=== PATIENT | female | born 1950 | race Caucasian/White ===

== ENCOUNTER 2023-07-31 11:53 | Outpatient (AMB) | payer OTHER, SELFPAY ==
[2023-07-31 13:22] VITALS: BP 102/64; PULSE 77; TEMP 36.8; O2SAT 97; BMI 25.2
--- NOTE | 2023-07-31 13:22 | MHC.OFFWIV ---
Intake Vital Signs 07/31/23 13:22 Height 5 ft 8 in Weight 166 lb BMI 25.2 BP 102/64 Blood Pressure Location Lt brachial Position Sitting Pulse 77 Pulse Source Pulse Oximeter Temp 98.2 F Temp Source Oral Pulse Oximetry (%) 97 Oxygen Delivery Method Room Air Intake Visit Reasons: [employer], cough, congestion (masked) Intake Note: Pt is here today c/o cough and chest congestion x1week Patient Tobacco Use Status: Never used Tobacco Allergies No Known Allergies Allergy (Verified 07/31/23 13:23) HPI HPI Comments History of Present Illness Details 73-year-old female presents for cough congestion x2 weeks. Sons sick with similar symptoms. PFSH Social History Patient Tobacco Use Status: Never used Tobacco Review of Systems Resp Reports chest congestion and Reports cough Physical Exam Vital Signs: Last Vital Signs Temp 98.2 F 07/31/23 13:22 Pulse 77 07/31/23 13:22 BP 102/64 07/31/23 13:22 Pulse Ox 97 07/31/23 13:22 Oxygen Delivery Method Room Air 07/31/23 13:22 BMI result Body Mass Index 25.2 Const General: cooperative, no acute distress and alert Orientation/consciousness: patient oriented x3 Limitations: no limitations HEENT Head: Yes normal to inspection Ears: hearing grossly normal bilaterally and external ears normal General nose exam: Normal external nose present Eyes General: appearance normal, both eyes and all related structures Neck Neck: Yes normal visual inspection Chest Chest palpation & inspection: normal inspection of the chest Resp Effort & Inspection: normal respiratory effort, able to speak in complete sentences and no audible wheezes Auscultation: clear to auscultation bilaterally Cardio Rate: regular rate Rhythm: regular rhythm GI Inspection: Yes normal to inspection Palpation (GI): Soft to palpation and nontender Skin General skin exam: no rashes or lesions noted Neuro General: patient oriented x3 Psych Appearance: grossly normal Mental Status: mental status grossly normal Speech and movement: Normal speech and movement present Affect: normal affect Attitude: cooperative Thought process: Normal thought process present Thought content: Normal thought content present Assessment & Plan Assessment & Plan (1) Upper respiratory infection: Code(s): J06.9 - Acute upper respiratory infection, unspecified Qualifiers: URI type: unspecified URI Qualified Code(s): J06.9 - Acute upper respiratory infection, unspecified Plan: Suspect upper respiratory infection given age is well as prolonged course in comorbidities will prescribe azithromycin. Discharge instructions, follow up and treatment are discussed with patient in my usual fashion. Alternatives in treatment are also discussed. The patient will return for worsening symptoms or as needed. Advised that any labs/imaging ordered will be followed up on and contact made if further treatment needed. Counseled that patient's condition may require further evaluation and/or treatment. Symptoms of concern for worsening disorder discussed in detail in my customary manner. Patient does verbalize understanding of the plan, there are no apparent barriers to communication. The patient is given the opportunity to ask questions and have them answered to his/her satisfaction Medications: New azithromycin For 250 mg dose pack: take 500 mg today (day 1), then 250 mg for 4 days (days 2-5) PO 6 tabs 0RF benzonatate 100 mg PO BID PRN 10 caps 0RF cough Coding Level of Care Code New Pt Level 3 (12952) Diagnoses Upper respiratory tract infection, unspecified type J06.9 URI type: unspecified URI
== END 2023-07-31 13:46 | disposition home or self-care (01) ==
PROVIDERS: Visit Provider Physician Assistant
DX: J06.9 Acute upper respiratory infection, unspecified (principal)
CPT/HCPCS: 99203

== ENCOUNTER 2024-07-17 08:04 | Day surgery (SDC) | payer MEDICARE, SELFPAY ==
[2024-07-12 15:50] VITALS: BMI 28.3
[2024-07-12 16:24] VITALS: BMI 28.2
--- NOTE | 2024-07-13 13:04 | HO.ANESPROP2 ---
Documented by User: Vickie Solano NP 07/13/24 13:05 HPI - Anesthesia Eval Consult details Narrative: 74yo F for Right Cataract Extraction IOL Insertion No previous cataract on record Anesthesia Pre-Procedure Meds Is the patient on any of the following meds?: GLP1/DPP4 PMFSH Active Problems Active Problems: All Active Problems Upper respiratory infection (Acute) Past Medical History Medical History Wears dentures Hx of therapeutic radiation Pulmonary nodule Abdominal aortic atherosclerosis Atherosclerotic heart disease of [place] coronary artery without angina pectoris Diabetes mellitus with hyperglycemia Chronic CHF Hypertensive heart disease with CHF Duodenal diverticulum Urinary incontinence History of breast cancer Cervical spinal stenosis Deviated nasal septum Bilateral adrenal adenomas Iron deficiency anemia Cataracts, bilateral Anemia 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 Cerebrovascular disease Hyperlipidemia GERD (gastroesophageal reflux disease) 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 Surgical History Surgical History History of surgery on lower extremity Hx of lumpectomy History of total right knee replacement (TKR) History of right hip replacement (~08/2023) S/P AAA repair (~2018) Hx of cholecystectomy Social History Social History Household Members Other:: son Kang Are you a primary manager home healthcare to a significant other at home: No Do you presently have visiting nurse or other home services: Yes (son caregiver) Patient Tobacco Use Status: Never used Tobacco Use of substances other than those prescribed or required for medical reasons: No Are you DNR?: No Advance Directives: Yes Advance Directives Information Provided: No Advance Directives on File: Yes Advance Directives Date on File: 11/08/23 Recently lost weight without trying: No Nutrition Risks: Surgical patient >75years Meds Allergies Allergy/AdvReac Type Severity Reaction Status Date / Time No Known Allergies Allergy Verified 07/17/24 08:49 Home Medications ?Medication ?Instructions ?Recorded ?Confirmed ?Last Taken ?Type amlodipine 5 mg tablet 5 mg PO DAILY 07/31/23 07/17/24 07/17/24 History aspirin 81 mg tablet,delayed 81 mg PO DAILY 07/31/23 07/17/24 Unknown History release atorvastatin 40 mg tablet 40 mg PO BEDTIME 07/31/23 07/17/24 Unknown History furosemide 20 mg tablet 20 mg PO DAILY 07/31/23 07/17/24 Unknown History lisinopril 40 mg tablet 40 mg PO DAILY 07/31/23 07/17/24 Unknown History metformin 1,000 mg tablet 1,000 mg PO BID 07/31/23 07/17/24 07/16/24 History metoprolol tartrate 50 mg tablet 50 mg PO BID 07/31/23 07/17/24 07/17/24 History alogliptin 25 mg tablet 25 mg PO DAILY 07/12/24 07/17/24 07/14/24 History docusate sodium 100 mg capsule 100 mg PO DAILY 07/12/24 07/17/24 Unknown History ferrous sulfate 325 mg (65 mg 325 mg PO Q OTHER DAY 07/12/24 07/17/24 Unknown History iron) tablet memantine 5 mg tablet 5 mg PO BID 07/12/24 07/17/24 Unknown History mirtazapine 15 mg tablet 15 mg PO BEDTIME 07/12/24 07/17/24 Unknown History Exam Height,Weight and Vital Signs: Height 5 ft 6 in Weight 79.379 kg Assessment and Plan Assessment Anesthesia Assessment: Chart Reviewed Documented by User: Merna Sharif MD 07/17/24 09:08 COUNTS INCLUDE 234 BEDS AT [facility] Past Medical History Medical History Wears dentures Hx of therapeutic radiation Pulmonary nodule Abdominal aortic atherosclerosis Atherosclerotic heart disease of [place] coronary artery without angina pectoris Diabetes mellitus with hyperglycemia Chronic CHF Hypertensive heart disease with CHF Duodenal diverticulum Urinary incontinence History of breast cancer Cervical spinal stenosis Deviated nasal septum Bilateral adrenal adenomas Iron deficiency anemia Cataracts, bilateral Anemia Adrenal Tien's syndrome Cerebrovascular disease Hyperlipidemia GERD (gastroesophageal reflux disease) 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 Family History Family history of problems with anesthesia: No Surgical History Surgical History History of surgery on lower extremity Hx of lumpectomy History of total right knee replacement (TKR) History of right hip replacement (~08/2023) S/P AAA repair (~2018) Hx of cholecystectomy History of Problems with Anesthesia: No Social History Social History Household Members Other:: son Kang Are you a primary manager home healthcare to a significant other at home: No Do you presently have visiting nurse or other home services: Yes (son caregiver) Patient Tobacco Use Status: Never used Tobacco Use of substances other than those prescribed or required for medical reasons: No Are you DNR?: No Advance Directives: Yes Advance Directives Information Provided: No Advance Directives on File: Yes Advance Directives Date on File: 11/08/23 Recently lost weight without trying: No Nutrition Risks: Surgical patient >75years Meds Allergies Allergy/AdvReac Type Severity Reaction Status Date / Time No Known Allergies Allergy Verified 07/17/24 08:49 Home Medications ?Medication ?Instructions ?Recorded ?Confirmed ?Last Taken ?Type amlodipine 5 mg tablet 5 mg PO DAILY 07/31/23 07/17/24 07/17/24 History aspirin 81 mg tablet,delayed 81 mg PO DAILY 07/31/23 07/17/24 Unknown History release atorvastatin 40 mg tablet 40 mg PO BEDTIME 07/31/23 07/17/24 Unknown History furosemide 20 mg tablet 20 mg PO DAILY 07/31/23 07/17/24 Unknown History lisinopril 40 mg tablet 40 mg PO DAILY 07/31/23 07/17/24 Unknown History metformin 1,000 mg tablet 1,000 mg PO BID 07/31/23 07/17/24 07/16/24 History metoprolol tartrate 50 mg tablet 50 mg PO BID 07/31/23 07/17/24 07/17/24 History alogliptin 25 mg tablet 25 mg PO DAILY 07/12/24 07/17/24 07/14/24 History docusate sodium 100 mg capsule 100 mg PO DAILY 07/12/24 07/17/24 Unknown History ferrous sulfate 325 mg (65 mg 325 mg PO Q OTHER DAY 07/12/24 07/17/24 Unknown History iron) tablet memantine 5 mg tablet 5 mg PO BID 07/12/24 07/17/24 Unknown History mirtazapine 15 mg tablet 15 mg PO BEDTIME 07/12/24 07/17/24 Unknown History Exam Airway Mallampati Class: II TM Dist: >3cm Neck ROM: Limited Heart: rrr Lungs: cta Assessment and Plan Assessment Anesthesia Assessment: Anesthesia Plan Discussed Final Anesthetic Review Family History of Problems with Anesthesia: No History of Problems with Anesthesia: No NPO: Yes ASA Class: III Final Preanesthetic Review: No Changes in Pt Med Stat, Meds/Allgs Chart Reviewed, Consent Obtained/Reviewed and Anes Risks/Benef Reviewed Patient Risk: Intermediate Procedure Risk: Low Anesthetic Plan Anesthetic Plan: MAC: Disposition: Standard PACU
[2024-07-17 08:39] VITALS: BP 176/60; PULSE 80; RESP 16; TEMP 37.2; O2SAT 96
[2024-07-17 08:50] LABS: Glucose, Whole Blood 140 mg/dL (60-115)
[2024-07-17 09:00] VITALS: BMI 28.0
[2024-07-17] MEDS: Lactated Ringers 500 ML 50 ML IV (09:00)
[2024-07-17] MEDS: Tetracaine HCl/PF 0.5% Oph Sol 4 ML DROPS 1 DROP EYE-RIGHT (09:03)
[2024-07-17] MEDS: Cyclopentolate 1 % Ophth Sol 2 ML DRPBTL 1 DROP EYE-RIGHT ×3 (09:04→09:20)
[2024-07-17] MEDS: Tropicamide 1 % Ophth Sol 3 ML BTL 1 DROP EYE-RIGHT ×3 (09:06→09:22)
[2024-07-17] MEDS: Ketorolac Tromethamine 0.5% Op 10 ML DROPS 1 DROP EYE-RIGHT ×3 (09:08→09:24)
[2024-07-17] MEDS: Phenylephrine HCL 2.5% Oph SoL 2 ML BOTTLE 1 DROP EYE-RIGHT ×3 (09:10→09:26)
--- NOTE | 2024-07-17 09:47 | P.PCNO_ITS ---
Ophthalmology Procedure Procedure Date of Service: 07/17/24 Ophthalmology Viscoelastic: Healon Duet Dual Pack Pro Ophthalmology Lenses: IOL Acrysof MP - MA60AC (21) Procedure Notes: PREOPERATIVE DIAGNOSIS: Decreased visual acuity right eye secondary to cataract POSTOPERATIVE DIAGNOSIS: Same PROCEDURE: Right cataract extraction with intraocular lens insertion SURGEON: Patel Andujar M.D. ANESTHESIA: Topical/MAC ESTIMATED BLOOD LOSS: None COMPLICATIONS: None After obtaining informed consent, the patient was brought to the operating room suite and placed in the supine position. After adequate sedation per anesthesia, topical drops of Tetracaine were given to the right eye. The eye was then prepped and draped in the usual sterile fashion. The operating room microscope was then positioned over the operative eye and a lid speculum placed. A paracentesis was created. Viscoelastic was then instilled into the anterior chamber. A three plane incision was then created temporally, utilizing a 2.85 mm keratome. Capsulotomy forceps were then utilized to create a circular tear capsulotomy. Hydrodissection and hydrodelineation were carried out until adequate mobilization of the nucleus occurred. Phacoemulsification was then utilized to remove the dense central nucl eus followed by removal of the cortical material utilizing the automated aspiration irrigation unit. Viscoelastic was instilled into the posterior capsular bag followed by placement of a posterior chamber intraocular lens without difficulty. The residual Viscoelastic was then removed utilizing the automated IA machine. The wound was checked and found to be watertight. The patient tolerated the procedure well and the lid speculum was removed. Intracameral injection of Vigamox 0.1 mL followed by a subtenon injection of Kenalog-40 0.2 mL were administered. The patient will be seen in the a.m.
--- NOTE | 2024-07-17 09:47 | MHC.SHP ---
Pre-Procedural Eval Section A - 24 Hr Update-Section A only Date of Service: 07/17/24 The patient is an INPATIENT: No Changes since office visit: No Cold of Flu in the past 2 weeks, No New Medical Problems, No Changes in Medication and No Patient answered all questions The patient has been examined within 24 hours of the surgical procedure. The History & Physical has been completed within 30 days and I have reviewed it.: Yes Section B - Complete if H&P > 30 days Chief Complaint: Age-related nuclear cataract, right eye Allergies: Allergies Allergy/AdvReac Type Severity Reaction Status Date / Time No Known Allergies Allergy Verified 07/17/24 08:49 Plan Diagnosis/Plan: Unchanged I have reviewed the history and physical and performed a pertinent physical examination on my patient. No changes have occurred unless specified. Time Spent With Patient Time: Total time managing care of this patient today ____ minutes.
[2024-07-17 10:18] VITALS: BP 118/59; PULSE 70; RESP 16; TEMP 36.2; O2SAT 98
[2024-07-17 10:33] VITALS: BP 119/65; PULSE 72; RESP 18; TEMP 36.2; O2SAT 95
== END 2024-07-17 10:38 | disposition home or self-care (01) ==
PROVIDERS: Visit Provider Ophthalmology
PROC: (CPT 66985; principal; 2024-07-17 10:00)
DX: H25.11 Age-related nuclear cataract, right eye (principal); H52.4 Presbyopia; H40.013 Open angle with borderline findings, low risk, bilateral; H18.413 Arcus senilis, bilateral; H11.153 Pinguecula, bilateral; I10 Essential (primary) hypertension; E11.9 Type 2 diabetes mellitus without complications; E78.00 Pure hypercholesterolemia, unspecified; G30.9 Alzheimer's disease, unspecified; F02.80 Dementia in other diseases classified elsewhere, unspecified severity, without behavioral disturbance, psychotic disturbance, mood disturbance, and anxiety; Z79.82 Long term (current) use of aspirin; Z79.84 Long term (current) use of oral hypoglycemic drugs; Z79.899 Other long term (current) drug therapy; Z87.891 Personal history of nicotine dependence
CPT/HCPCS: 66984; 82947; J2250; J3301; V2630

== ENCOUNTER 2024-07-31 07:46 | Day surgery (SDC) | payer MEDICARE, SELFPAY ==
[2024-07-12 16:38] VITALS: BMI 28.2
--- NOTE | 2024-07-28 09:05 | P.CONAN_ITS ---
Documented by User: Vickie Solano NP 07/28/24 09:06 HPI - Anesthesia Eval Consult details Narrative: 74yo F for Left Cataract Extraction IOL Insertion Right eye 07/17: [facility] 1 Anesthesia Pre-Procedure Meds Is the patient on any of the following meds?: SGLT2 Inhib PMFSH Active Problems Active Problems: All Active Problems Upper respiratory infection (Acute) Past Medical History Medical History Wears dentures Hx of therapeutic radiation Pulmonary nodule Abdominal aortic atherosclerosis Atherosclerotic heart disease of [place] coronary artery without angina pectoris Diabetes mellitus with hyperglycemia Chronic CHF Hypertensive heart disease with CHF Duodenal diverticulum Urinary incontinence History of breast cancer Cervical spinal stenosis Deviated nasal septum Bilateral adrenal adenomas Iron deficiency anemia Cataracts, bilateral Anemia Adrenal Tien's syndrome Cerebrovascular disease Hyperlipidemia GERD (gastroesophageal reflux disease) 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 Family History Family history of problems with anesthesia: No Surgical History Surgical History History of surgery on lower extremity Hx of lumpectomy History of total right knee replacement (TKR) History of right hip replacement (~08/2023) S/P AAA repair (~2018) Hx of cholecystectomy History of Problems with Anesthesia: No Social History Social History Household Members Other:: son Kang Are you a primary lawn care technician to a significant other at home: No Do you presently have visiting nurse or other home services: Yes (son caregiver) Patient Tobacco Use Status: Never used Tobacco Use of substances other than those prescribed or required for medical reasons: No Are you DNR?: No Advance Directives: Yes Advance Directives Information Provided: No Advance Directives on File: Yes Advance Directives Date on File: 11/08/23 Recently lost weight without trying: No Nutrition Risks: Surgical patient >75years Meds Allergies Allergy/AdvReac Type Severity Reaction Status Date / Time No Known Allergies Allergy Verified 07/17/24 08:49 Home Medications ?Medication ?Instructions ?Recorded ?Confirmed ?Last Taken ?Type amlodipine 5 mg tablet 5 mg PO DAILY 07/31/23 07/17/24 07/31/24 History aspirin 81 mg tablet,delayed 81 mg PO DAILY 07/31/23 07/17/24 Unknown History release atorvastatin 40 mg tablet 40 mg PO BEDTIME 07/31/23 07/17/24 Unknown History furosemide 20 mg tablet 20 mg PO DAILY 07/31/23 07/17/24 Unknown History lisinopril 40 mg tablet 40 mg PO DAILY 07/31/23 07/17/24 Unknown History metformin 1,000 mg tablet 1,000 mg PO BID 07/31/23 07/17/24 07/16/24 History metoprolol tartrate 50 mg tablet 50 mg PO BID 07/31/23 07/17/24 07/31/24 History alogliptin 25 mg tablet 25 mg PO DAILY 07/12/24 07/17/24 07/28/24 History docusate sodium 100 mg capsule 100 mg PO DAILY 07/12/24 07/17/24 Unknown History ferrous sulfate 325 mg (65 mg 325 mg PO Q OTHER DAY 07/12/24 07/17/24 Unknown History iron) tablet memantine 5 mg tablet 5 mg PO BID 07/12/24 07/17/24 Unknown History mirtazapine 15 mg tablet 15 mg PO BEDTIME 07/12/24 07/17/24 Unknown History Exam Height,Weight and Vital Signs: Height 5 ft 6 in Weight 79.379 kg Assessment and Plan Assessment Anesthesia Assessment: Chart Reviewed Final Anesthetic Review Family History of Problems with Anesthesia: No History of Problems with Anesthesia: No Documented by User: Tamara Edward MD 07/31/24 08:35 [facility] Past Medical History Medical History Wears dentures Hx of therapeutic radiation Pulmonary nodule Abdominal aortic atherosclerosis Atherosclerotic heart disease of [place] coronary artery without angina pectoris Diabetes mellitus with hyperglycemia Chronic CHF Hypertensive heart disease with CHF Duodenal diverticulum Urinary incontinence History of breast cancer Cervical spinal stenosis Deviated nasal septum Bilateral adrenal adenomas Iron deficiency anemia Cataracts, bilateral Anemia Adrenal [place] syndrome Cerebrovascular disease Hyperlipidemia GERD (gastroesophageal reflux disease) 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 Surgical History Surgical History History of surgery on lower extremity Hx of lumpectomy History of total right knee replacement (TKR) History of right hip replacement (~08/2023) S/P AAA repair (~2018) Hx of cholecystectomy Social History Social History Household Members Other:: son Kang Are you a primary lawn care technician to a significant other at home: No Do you presently have visiting nurse or other home services: Yes (son caregiver) Patient Tobacco Use Status: Never used Tobacco Use of substances other than those prescribed or required for medical reasons: No Are you DNR?: No Advance Directives: Yes Advance Directives Information Provided: No Advance Directives on File: Yes Advance Directives Date on File: 11/08/23 Recently lost weight without trying: No Nutrition Risks: Surgical patient >75years Meds Allergies Allergy/AdvReac Type Severity Reaction Status Date / Time No Known Allergies Allergy Verified 07/17/24 08:49 Home Medications ?Medication ?Instructions ?Recorded ?Confirmed ?Last Taken ?Type amlodipine 5 mg tablet 5 mg PO DAILY 07/31/23 07/17/24 07/31/24 History aspirin 81 mg tablet,delayed 81 mg PO DAILY 07/31/23 07/17/24 Unknown History release atorvastatin 40 mg tablet 40 mg PO BEDTIME 07/31/23 07/17/24 Unknown History furosemide 20 mg tablet 20 mg PO DAILY 07/31/23 07/17/24 Unknown History lisinopril 40 mg tablet 40 mg PO DAILY 07/31/23 07/17/24 Unknown History metformin 1,000 mg tablet 1,000 mg PO BID 07/31/23 07/17/24 07/16/24 History metoprolol tartrate 50 mg tablet 50 mg PO BID 07/31/23 07/17/24 07/31/24 History alogliptin 25 mg tablet 25 mg PO DAILY 07/12/24 07/17/24 07/28/24 History docusate sodium 100 mg capsule 100 mg PO DAILY 07/12/24 07/17/24 Unknown History ferrous sulfate 325 mg (65 mg 325 mg PO Q OTHER DAY 07/12/24 07/17/24 Unknown History iron) tablet memantine 5 mg tablet 5 mg PO BID 07/12/24 07/17/24 Unknown History mirtazapine 15 mg tablet 15 mg PO BEDTIME 07/12/24 07/17/24 Unknown History Exam Airway Mallampati Class: II TM Dist: >3cm Neck ROM: Full Denture: Upper and Lower Heart: rrr Lungs: cta Assessment and Plan Assessment Anesthesia Assessment: Anesthesia Plan Discussed Final Anesthetic Review NPO: Yes ASA Class: III Final Preanesthetic Review: No Changes in Pt Med Stat, Meds/Allgs Chart Reviewed and Consent Obtained/Reviewed Patient Risk: Low Procedure Risk: Low Anesthetic Plan Anesthetic Plan: MAC: Disposition: Standard PACU
[2024-07-31 08:29] VITALS: BP 175/76; PULSE 80; RESP 16; TEMP 37.3; O2SAT 97
[2024-07-31] MEDS: Lactated Ringers 500 ML 50 ML IV (08:40)
[2024-07-31] MEDS: Tetracaine HCl/PF 0.5% Oph Sol 4 ML DROPS 1 DROP EYE-LEFT (08:40)
[2024-07-31] MEDS: Cyclopentolate 1 % Ophth Sol 2 ML DRPBTL 1 DROP EYE-LEFT ×3 (08:41→08:47)
[2024-07-31] MEDS: Tropicamide 1 % Ophth Sol 3 ML BTL 1 DROP EYE-LEFT ×3 (08:42→08:48)
[2024-07-31] MEDS: Phenylephrine HCL 2.5% Oph SoL 2 ML BOTTLE 1 DROP EYE-LEFT ×3 (08:43→08:50)
[2024-07-31] MEDS: Ketorolac Tromethamine 0.5% Op 10 ML DROPS 1 DROP EYE-LEFT ×3 (08:43→08:49)
[2024-07-31 08:55] LABS: Glucose, Whole Blood 150 mg/dL (60-115)
--- NOTE | 2024-07-31 09:21 | MHC.SHP ---
Pre-Procedural Eval Section A - 24 Hr Update-Section A only Date of Service: 07/31/24 The patient is an INPATIENT: No Changes since office visit: No Cold of Flu in the past 2 weeks, No New Medical Problems, No Changes in Medication and No Patient answered all questions The patient has been examined within 24 hours of the surgical procedure. The History & Physical has been completed within 30 days and I have reviewed it.: Yes Section B - Complete if H&P > 30 days Chief Complaint: Age-related nuclear cataract, left eye Allergies: Allergies Allergy/AdvReac Type Severity Reaction Status Date / Time No Known Allergies Allergy Verified 07/17/24 08:49 Plan Diagnosis/Plan: Unchanged I have reviewed the history and physical and performed a pertinent physical examination on my patient. No changes have occurred unless specified. Time Spent With Patient Time: Total time managing care of this patient today ____ minutes.
--- NOTE | 2024-07-31 09:22 | HO.PNOPHT ---
Ophthalmology Procedure Procedure Date of Service: 07/31/24 Ophthalmology Viscoelastic: Healon Duet Dual Pack Pro Ophthalmology Lenses: IOL Acrysof MP - MA60AC (21.5) Procedure Notes: PREOPERATIVE DIAGNOSIS: Decreased visual acuity left eye secondary to cataract POSTOPERATIVE DIAGNOSIS: Same PROCEDURE: Left cataract extraction with intraocular lens insertion SURGEON: Patel Andujar M.D. ANESTHESIA: Topical/MAC ESTIMATED BLOOD LOSS: None COMPLICATIONS: None After obtaining informed consent, the patient was brought to the operation room suite and placed in the supine position. After adequate sedation per anesthesia, topical drops of Tetracaine were given to the left eye. The eye was then prepped and draped in the usual sterile fashion. The operating room microscope was then positioned over the operative eye and a lid speculum placed. A paracentesis was created. Viscoelastic was then instilled into the anterior chamber. A three plane incision was then created temporally, utilizing a 2.85 mm keratome. Capsulotomy forceps were then utilized to create a circular tear capsulotomy. Hydrodissection and hydrodelineation were carried out until adequate mobilization of the nucleus occurred. Phacoemulsification was then utilized to remove the dense central nucleus followed by removal of the cortical material utilizing the automated aspiration irrigation unit. Viscoat elastic was instilled into the posterior capsular bag followed by placement of a posterior chamber intraocular lens without difficulty. The residual Viscoat elastic was then removed utilizing the automated IA machine. The wound was check and found to be watertight. The patient tolerated the procedure well and the lid speculum was removed. Intracameral injection of Vigamox 0.1 mL followed by a subtenon injection of Kenalog-40 0.2 mL were administered. The patient will be seen in the a.m.
[2024-07-31 09:50] VITALS: BP 153/64; PULSE 67; RESP 16; TEMP 36.4; O2SAT 98
--- OUTSIDE RECORDS SUMMARY | 2024-08-02 12:41 | XMS_ITS | Continuity of Care Document ---
Author Organization [facility] Address [address] [address] Phone Care Team Providers Care Diving Judge Name Role Phone Vandana Hernández NP Unavailable Unavailable Allergies, Adverse Reactions, Alerts Substance Reaction Status Criticality No Known Allergies Active No Inform ation Medications Medication Instructions Dosage Effective Dates (start - stop) Status Comments atorvastatin 40 mg tablet take 1 tablet by oral route every day 40 MG - Active aspirin 81 mg tablet,delayed release take 1 tablet by oral route every day 81 MG - Active omeprazole 20 mg capsule,delayed release take 1 capsule by oral route every day 30 minutes to 1 hour before a meal 20 MG - Active amlodipine 5 mg tablet take 1 tablet by oral route every day 5 MG - Active lisinopril 40 mg tablet take 1 tablet by oral route every day 40 MG - Active furosemide 20 mg tablet take 2 tablet by oral route every day 40 MG - Active memantine 5 mg tablet take 1 tablet by o ral route 2 times every day 5 MG - Active mirtazapine 15 mg tablet take 1 tablet by oral route every day before bedtime 15 MG - Active metoprolol tartrate 50 mg tablet take 1 tablet by oral route 2 times every day with meals 50 MG - Active metformin ER 500 mg tablet,extended release 24 hr take 2 tablet by oral route 2 times every day with the evening meal 1000 MG - Active alogliptin 25 mg tablet take 1 tablet by oral route every day 25 MG - Active ferrous sulfate 325 mg (65 mg iron) tablet take 1 tablet by oral route every other day - Active Colace 100 mg capsule take 1 capsule by oral route every day at bedtime - Active Procedures Procedure Date THERAPEUTIC EXERCISES GAIT TRAINING THERAPY THERAPEUTIC EXERCISES GAIT TRAINING THERAPY THERAPEUTIC EXERCISES GAIT TRAINING THERAPY THERAPEUTIC EXERCISES GAIT TRAINING THERAPY OFFICE/OUTPATIENT VISIT EST PT RE-EVAL EST PLAN CARE THERAPEUTIC EXERCISES GAIT TRAINING THERAPY THERAPEUTIC EXERCISES GAIT TRAINING THERAPY THERAPEUTIC EXERCISES GAIT TRAINING THERAPY OFFICE/OUTPATIENT VISIT EST THERAPEUTIC EXERCISES GAIT TRAINING THERAPY THERAPEUTIC EXERCISES THERAPEUTIC ACTIVITIES GAIT TRAINING THERAPY THERAPEUTIC EXERCISES PT EVAL LOW COMPLEX 20 MIN OT EVAL LOW COMPLEX 30 MIN PT EVAL LOW COMPLEX 20 MIN IMMUNIZATION ADMIN IIV NO PRSV INCREASED AG IM OFFICE/OUTPATIENT VISIT NEW MEDICAL NUTRITION INDIV IN Advance Directives Directive Yes / No Effective Date File Name No Information Encounters Encounter Description Practice Location Reason(s) For Visit Diagnoses Date Provider Providers Copied on Encounter [facility], [facility], [place], [place], [id number], tel:[phone] [place] No Information 4 Betty Ross. [address] [place], [place], [id number] , [place]. tel:[phone] [facility], [address] [facility], [place], [place], [id number], tel:[phone] [place] Muscle weakness (generalized)Di fficulty in walking, not elsewhere classified 4 Laurent Freddy. [address], [place], [address]. tel: [phone] [facility], [address], [place], [place], [id number], [place] tel:[phone] [place] Difficulty in walking, not elsewhere classifiedMuscl e weakness (generalized) 4 Laurent Freddy. [address], [place], [address]. tel: [phone] [facility], [address], [place], [place], [id number], [place] tel:[phone] [place] Difficulty in walking, not elsewhere classifiedMuscl e weakness (generalized) 4 Laurent Freddy. [address] [place], [address]. tel: [phone] [facility], [address] [facility], [place], [place], [id number], [place] tel:[phone] [place] Difficulty in walking, not elsewhere classifiedMuscl e weakness (generalized) 4 Laurent Freddy. [address] [place], [address]. tel: [phone] OFFICE/OUTPA TIENT VISIT EST [facility], [address] [place] [address], [id number], [place] tel:[phone] [place] Acute Visit (chief complaint) Age-related cataract of both eyes, unspecified age-related cataract type 4 Betty Ross. [address] [place], [id number] , [place]. tel: [phone] [facility], [address], [place], [place], [id number], [place] tel:[phone] [place] Unspecified cataract 4 Betty Ross. [address] [place], [id number] , [place]. tel:[phone] [facility], [address], [place], [place], [id number], [place] tel:[phone] [place] Difficulty in walking, not elsewhere classified Nov0 4 Laurent Freddy. [address] [place], [address]. tel:[phone] [facility], [address] [facility], [place], [place], [id number], [place] tel:[phone] [place] Difficulty in walking, not elsewhere classifiedMuscl e weakness (generalized) Jun-0 4 Laurent Freddy. [address] [place], [address]. tel:[phone] [facility], [address] [facility], [place], [place], [id number], [place] tel:[phone] [place] No Information Jun-0 4 Betty Ross. [address] [place], [id number] , [place]. tel: [phone] [facility], [address] [facility], [place], [place], [id number], [place] tel:[phone] [place] Muscle weakness (generalized)Di fficulty in walking, not elsewhere classifiedUnspe cified age-related cataract 4 Laurent Freddy. [address] [place], [address]. tel: [phone] [facility], [address] [facility], [place], [place], [id number], [place] tel:[phone] [place] Difficulty in walking, not elsewhere classifiedMuscl e weakness (generalized) 4 Laurent Freddy. [address] [place], [address]. tel: [phone] OFFICE/OUTPA TIENT VISIT EST [facility], [address] [facility], [place], [place], [id number], [place] tel:[phone] [place] Follow-up (chief complaint) Iron deficiency anemia secondary to inadequate dietary iron intake 4 Betty Rodrigueza. [address] [place], [id number] , [place]. tel:[phone] [facility], [address], [place], [place], [id number], [place] tel:[phone] [place] Difficulty in walking, not elsewhere classifiedMuscl e weakness (generalized) 4 Laurent Freddy. [address], [place], [address]. tel:[phone] [facility], [address], [place], [place], [id number], [place] tel:[phone] [place] Difficulty in walking, not elsewhere classifiedMuscl e weakness (generalized) 4 Laurent Freddy. [address] [place], [address]. tel:[phone] [facility], [address], [place], [place], [id number], [place] tel:[phone] [place] Difficulty in walking, not elsewhere classified 4 Laurent Freddy. [address] [place], [address]. tel:[phone] [facility], [address], [place], [place], [id number], [place] tel:[phone] [place] Difficulty in walking, not elsewhere classified 4 Laurent Freddy. [address] [place], [address]. tel:[phone] [facility], [address], [place], [place], [id number], [place] tel:[phone] [place] Encounter for rehabilitation evaluation 4 Brannon Bhakta. [address] [place], [id number] , [place]. tel:[phone] [facility], [address], [place], [place], [id number], tel:[phone] [place] Encounter for rehabilitation evaluation 4 Laurent Hayes. [address] [place], [address]. tel:[phone] [facility], [address] [facility], [place], [place], [id number], [place] tel:[phone] [place] No Information 4 Bhupinder Adonis. [address] [place], [id number] , [place]. tel:[phone] OFFICE/OUTPA TIENT VISIT NEW [facility], [facility], [place], [place], [id number], [place] tel:[phone] [place] Post Enrollment Evaluation (chief complaint) Mixed Alzheimer's and vascular dementiaVascula r dementia, unspecified severity, without behavioral disturbance, psychotic disturbance, mood disturbance, and anxietyDementia in other diseases classified elsewhere, unspecified severity, without behavioral disturbance, psychotic disturbance, mood disturbance, and anxietyCerebrov ascular diseaseHyperten sive heart disease with congestive heart failure, unspecified heart failure typeChronic congestive heart failure, unspecified heart failure typeType 2 diabetes mellitus with hyperglycemia, without long-term current use of insulinType 2 diabetes mellitus with diabetic polyneuropathy, without long-term current use of insulinHyperlip idemia, unspecified hyperlipidemia typeAtheroscler osis of [place] coronary artery of [place] heart without angina pectorisAbdomin al aortic atherosclerosis Gastroesophagea l reflux disease without esophagitisDuod enal diverticulumAdr enal Kingsley's syndromeBilater al adrenal adenomasBenign neoplasm of left adrenal glandDeviated nasal septumCervical spinal stenosisPulmona ry noduleHistory of breast cancerHistory of cholecystectomy S/P AAA repairPersonal history of other diseases of the circulatory systemHistory of right hip replacementUrin raf incontinence, unspecified typeAnemia, unspecified type 4 Betty Ross. [address] [place], [id number] , [place]. tel:[phone] [facility], [address] [facility], [place], [place], [id number], [place] tel:[phone] [place] Encounter for nutritional assessmentAt risk for inadequate oral intakeDiabetic nutritional counseling completed 4 Normile Maria E. [address] [place], [id number] , [place]. [phone] [facility], [address] [facility] [address], [place], [place], [id number], [place] tel:[phone] [place] No Information 4 Bentley Aqib. [address] [place], [id number] , [place]. tel:[phone] Family History Family Member Type Diagnosis Age At Onset No Information Immunizations Vaccine Date Status Comments Fluzone High Dose administered So urce: New Immunization Record COVID-19 Moderna administered Source: Oth er Registry COVID-19 Moderna administered Source: Oth er Registry COVID-19 Moderna administered Source: Ot er Registry Flu-aIIV4 administered Source: Other R egistry Prevnar 13 administered Note: pre enrol lment records ; Source: Other Provider Tdap administered Note: pre enrol lment records ; Source: Other Provider Payers Payer name Insurance type Covered republican ID Authordenya luzma(s) [facility] [address] [id number] [place] [address] [id number] Social History Type Description Quantity Date Captured Comments Sex Female Smoking Status No Information Chief Complaint And Reason For Visit No Information Reason For Referral Reason For Referral No Information Plan Of Treatment Date Type Action Status Referral Ordered: Referrals: Ophthalmology. Follow-up and treat ordered Referral Ordered: Referrals: Ophthalmology. Evaluate and treat Appointment date/timeframe: 07/17/2024 ordered Appointment Billie Dockery Appointment Billie Dockery Appointment Billie Dockery Appointment Lukoadela, Billie Appointment Lukoadela, Billie Appointment Lukoadela, Billie Appointment Lukoadela, Billie Appointment Lukoadela, Billie Appointment Lukoadela, Billie Appointment Lukoadela, Billie Appointment Lukoadela, Billie Appointment Lukoadela, Billie Appointment Lukomsvladimir, Billie Appointment Lukomsvladimir, Billie Appointment Lukoadela, Billie Appointment Lukoadela, Billie Appointment Lukoadela, Billie Appointment Lukoadela, Billie Appointment Lukoadela, Billie Appointment Lukoadela, Billie Appointment Lukoadela, Billie Appointment Lukoadela, Billie Appointment Lukoadela, Billie Appointment Lukoadela, Billie Appointment Lukoadela, Billie Appointment Lukoaedla, Billie Appointment Lukoadela, Billie Appointment Lukoadela, Billie Appointment Lukoadela, Billie Appointment Lukoadela, Billie Appointment Lukoadela, Billie Appointment Lukoadela, Billie Appointment Lukoadela, Billie Appointment Lukoadela, Billie Appointment Lusidney, Billie Appointment Lukoadela, Billie Appointment Lukoadela, Billie Appointment Lukoadela, Billie Appointment Lukoadela, Billie Appointment Lukomsvladimir, Billie Appointment Lukoadela, Billie Appointment Lukoadela, Billie Appointment Lukomsvladimir, Billie Appointment Lukoadela, Billie Appointment Lukomsvladimir, Billie Appointment Lukomsvladimir, Billie Appointment Lukomsvladimir, Billie Appointment Lukomsvladimir, Billie Appointment Lukomsvladimir, Billie Appointment Lukomsvladimir, Billie Appointment Lukoadela, Billie Appointment Lukomsvladimir, Billie Appointment Lukoadela, Billie Appointment Lukoadela, Billie Appointment Lukoadela, Billie Appointment Lukomsvladimir, Billie Appointment Lukoadela, Billie Appointment Lukoadela, Billie Appointment Lukoadela, Billie Appointment Lukoadela, Billie Appointment Lukoadela, Billie Appointment Lukoadela, Billie Appointment Lukoadela, Billie Appointment Lukoadela, Billie Appointment Lukoadela, Billie Appointment Lukoadela, Billie Appointment Lukoadela, Billie Appointment Lukoadela, Billie Appointment Lukoadela, Billie Appointment Lukoadela, Billie Appointment Samanthakoadela, Billie Appointment Lukoadela, Billie Appointment Lukoadela, Billie Appointment Lukomski, Appointment Lukomski, Appointment Lukomski, Appointment Lukomski, Appointment Lukomski, Appointment Lukomski, Appointment Lukomski, Appointment Lukomski, Appointment Lukomski, Appointment Lukomski, Appointment Lukomski, Appointment Lukomski, Appointment Lukomski, Appointment Lukomski, Appointment Lukomski, Appointment Lukomski, Appointment Lukomski, Appointment Lukoadela, Appointment Lukomski, Appointment Lukomski, Appointment Lukomsvladimir, Appointment Lukomski, Appointment Lukomsvladimir, Appointment Lukoadela, Appointment Lukomsvladimir, Appointment Lukomski, Appointment Lukoadela, Appointment Lukomski, Appointment Lukomski, Appointment Lukomski, Billie Appointment Lukomski, Appointment Lukomski, Billie Appointment Lukomski, Billie Appointment Lukomsvladimir, Billie Appointment Lukomsvladimir, Billie Appointment Lukomsvladimir, Billie Appointment Lukoadela, Billie Appointment Lusidney, Billie Appointment Lukoadela Billie Appointment Lusidney, Billie Appointment Lusidney Billie Appointment Lusidney Billie Appointment Lukoadela Billie Appointment Lukoadela Billie Appointment Lusidney Billie Appointment Lukoadela Billie Appointment Lukoadela, Billie Appointment Lukoadela Billie Appointment Lukoadela Billie Appointment Lusidney Billie Appointment Sarkis Billie Appointment Sarkis Billie Appointment Sarkis Billie Appointment Sarkis Billie Appointment Sarkis Billie Appointment Sarkis Billie Appointment Sarkis Billie Appointment Sarkis Billie Appointment Sarkis Billie Appointment Sarkis Billie Appointment Sarkis Billie Appointment Sarkis Billie Appointment Sarkis Billie Appointment Sarkis Billie Appointment Sarkis Billie Appointment Sarkis Billie Appointment Sarkis Billie Appointment Sarkis Billie Appointment Sarkis Billie Appointment Sarkis Billie Appointment Sarkis Billie Appointment Sarkis Billie Appointment Lusidney, Billie Appointment Lusidney, Billie Appointment Lukoadela, Billie Appointment Lukoadela, Billie Appointment Lukoadela, Billie Appointment Sarkis, Billie Appointment Lusidney, Billie Appointment Lukoadela, Billie Appointment Lukoadela, Billie Appointment Lukomsvladimir, Billie Appointment Lukoadela, Billie Appointment Lukoadela, Billie Appointment Lukoadela, Billie Appointment Lukoadela, Billie Appointment Lusidney, Billie Appointment Sarkis, Billie Appointment Sarkis, Billie Appointment Lukoadela, Billie Appointment Lusidney, Billie Appointment Sarkis, Billie Appointment Sarkis, Billie Future Order: Radiology Order EC G, 12 lead, init preventive screening, interp and report only (G0405), Ordered on: Ordered History Of Present Illness Encounter Date Complaint History Of Prese nt Illness Acute Visit Patient is here for pre-op clearance. She is going to have a Right eye cataract extraction. Patient 74 y/o with PMH significant for moderate dementia, DM II, abdominal aortic aneurysm with repair (2019), breast carcinoma, hypertension, hyperlipidemia, urinary incontinence, adrenal adenoma, arthritis, and GERD.Her current medications include: omeprazole, acetaminophen, amlodipine, aspirin, furosemide, glipizide, metformin, metoprolol, and Vitamin B12. Patient has been stable since she enrolled in [employer] 2 months ago. No recent falls or hospitalization.Today she denies any acute complaint. Denies dizziness, SOB, palpitation, chest pain, fever, N/V.On physical exam, at base line with clear long sound, regular HR, no murmur, no edema. Follow-up Patient is here for 30 day follow up. Her son present for providing history.Patient 74 y/o female with advanced dementia and DMII. Son reports she has been physically and behaviorally stable. she as been attending [facility] since enrollment and looks like adjusted well with her new environment. Reviewed her lab result with the son, which shows improvement of anemia with Hgb 11.6, however her feritin has remained low at 7 which can explain her restless leg syndrome. Patient denies SOB, palpitation, CP or dizziness.PELungs CTA bilaterallyCV regular HR, systolic murmurLE trace edema bilaterally Post Enrollment Evaluation Paige berman is here for initial visit. Her son, Kang, who is her caregiver is also present to provide history since patient has advanced dementia.Billie is a 74 y/o female (Micron[place] decent) with PMH significant for advanced dementia, DM II, abdominal aortic aneurysm with repair (2018), breast carcinoma, hypertension, hyperlipidemia, urinary incontinence, adrenal adenoma, arthritis, and GERD.She has been [place] [facility] [place] Her current medications include: omeprazole, acetaminophen, amlodipine, aspirin, furosemide, glipizide, metformin, metoprolol, and Vitamin B12. Billie lives at home with his younger son. She has two sons who are very close her. Her in 2003. Son report, a baby in the family at the time of her passing helped tremendously with her mom's grieving. She has high school education. 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 She doesn't drink alcohol.She had multiple surgeries, AAA repair 4 years ago, Right knee total replacement, Right hip hemiarthroplasty (due to end stage arthritis and not a fracture)She is cognitively impaired (MOCA 14/30). At the beginning of her diagnosis had some restlessness and sleep problem, for which she was started on Mirtazapine. Otherwise, her affect and response to social cues were appropriate and she frequently made jokes. Comprehension appeared intact. Speech was fluent with normal prosody. Thought process was organized. She provided historical information, but information was supplemented by her son. She lacked insight into the extent of her cognitive difficulties. Functional Status Date Functional Assessmen t No Information Instructions Date Instruction Additional Infor tamara Patient is clear for having Right eye cataract extraction. Related to Age-related cataract of both eyes, unspecified age-related cataract type Improved Hgb from 9. 6 to 11.6 from her last admission in recent months. Should continue with ferrous sulfate given low ferritin level and being symptomatic with restless leg Related to Iron deficiency anemia secondary to inadequate dietary iron intake Stable. Uses pads Related to Uri nary incontinence, unspecified type Noted in her recent lab. Needs follow up lab to determine the root cause. will order Related to Anemia, unspecified type in Aug 2023 due to e nd stage arthritis Related to History of right hip replacement AAA: Ruptured abdomi nal aortic aneurysm status post EVAR overall clinically stable imaging. We will continue yearly duplex surveillance. Related to S/P AAA repair AAA: Ruptured abdomi nal aortic aneurysm status post EVAR overall clinically stable imaging. We will continue yearly duplex surveillance. Related to Personal history of other diseases of the circulatory system Noted on MRI imaging Related to History of cholecystectomy S/p Right breast lum pectomy and radiation. Related to History of breast cancer CT chest: There is a 5 mm solid nodule within the anterior left upper lobe. Last imaging 2022, unchanged in size since 2019. Nevertheless, she has a 30 year history of smoking Related to Pulmonary nodule Moderate rightward n maximo septal deviation. Partially visualized polyps or retention cysts measuring 1.5 cm LEFT maxillary sinus anterolaterally. Related to Cervical spinal stenosis Moderate rightward n maximo septal deviation. Partially visualized polyps or retention cysts measuring 1.5 cm LEFT maxillary sinus anterolaterally. Related to Deviated nasal septum Bilateral lipid rich adrenal adenomas. Currently asymptomatic Related to Bilateral adrenal adenomas Bilateral lipid rich adrenal adenomas. Currently asymptomatic Related to Benign neoplasm of left adrenal gland Due to bilateral adr enal adenomas; symptomatic with obesity, high blood pressure, high blood sugar, high blood cholesterol. 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 has been on PPI for too long, will d/c with son's agreement until next flare up. Nevertheless, she has chronic elevation of the left hemidiaphragm that might play role in her early satiety. Related to Gastroesophageal reflux disease without esophagitis CT chest 2022: Sever e stenosis of the celiac artery immediately after the takeoff + vertebral artery stenosis. Has a history of AAA repair in 2020. Currently on statin and ASA Related to Abdominal aortic atherosclerosis CT chest 2022: Heavy coronary artery calcifications. currently on statin, ASA and metoprolol Related to Atherosclerosis of [place] coronary artery of [place] heart without angina pectoris Continue with Atorvastatin 80mg Related to Hyperlipidemia, unspecified hyperlipidemia type She gets nocturnal p ins and needles but can tolerate it. Wears diabetic shoes. Will provide podiatry in the office when the time comes. Related to Type 2 diabetes mellitus with diabetic polyneuropathy, without long-term current use of insulin Her last A1c in January 2024 was 8%. Currently on Metformin 1000mg and Glipizide 5mg BID. Will obtain repeat lab. Related to Type 2 diabetes mellitus with hyperglycemia, without long-term current use of insulin Her [facility] lab work nighat wed elevated pro-BNP, on exam has systolic murmur. Currently BP at goal of < 140/90. On Lasix 40mg Related to Chronic congestive heart failure, unspecified heart failure type With extensive ather osclerotic disease and mild chronic CHF (elevated pro-BNP)as etiology of her HTN. Currently BP at goal of < 140/90. On Amlodipine, Lisinopril, and Lasix. 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 She is currently with advanced dementia Related to Cerebrovascular disease Diagnosed in early 2 023. Currently MOCA 14/30. At the beginning of her diagnosis, she had some restlessness and sleep problem, for which she was started on Mirtazapine. Otherwise, her affect and response to social cues were appropriate and she frequently made jokes. Comprehension appeared intact. Speech was fluent with normal prosody. Thought process was organized. She provided historical information, but information was supplemented by her son. She lacked insight into the extent of her cognitive difficulties Related to Dementia in other diseases classified elsewhere, unspecified severity, without behavioral disturbance, psychotic disturbance, mood disturbance, and anxiety Diagnosed in early . Currently MOCA 14/30. At the beginning of her diagnosis, she had some restlessness and sleep problem, for which she was started on Mirtazapine. Otherwise, her affect and response to social cues were appropriate and she frequently made jokes. Comprehension appeared intact. Speech was fluent with normal prosody. Thought process was organized. She provided historical information, but information was supplemented by her son. She lacked insight into the extent of her cognitive difficulties Related to Vascular dementia, unspecified severity, without behavioral disturbance, psychotic disturbance, mood disturbance, and anxiety Diagnosed in early . Currently MOCA 14/30. At the beginning of her diagnosis, she had some restlessness and sleep problem, for which she was started on Mirtazapine. Otherwise, her affect and response to social cues were appropriate and she frequently made jokes. Comprehension appeared intact. Speech was fluent with normal prosody. Thought process was organized. She provided historical information, but information was supplemented by her son. 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 Billie will demonstrate safe transfers and ambulation in the community Patient Goal New Billie is at risk for complications related to diabetes. Jasmins A1C will be reduced or remain stable, as determined by the provider, for 6 months. Patient Goal New Billie is at risk for skin breakdown related to urinary incontinence Skin will remain free from breakdown for 6 months. Patient Goal New Impaired Visual Acuity due to cataracts iBllie will continue to function in their current environment without injury through the next review. Patient Goal Billie is at risk for falls due to functional mobility, and dx of dementia Billie will not experience any falls or fall related injuries for 6 months. Patient Goal Billie is at risk for elopement secondary to dx of dementia Billie will not wander from [facility] center or home environment for 6 months. Patient Goal Decreased cardiac output r/t previous triple A repair and cardiac issues Billie will remain free from cardiac complications for 6 months Patient Goal Patient Care Teams Name Effective Dates (start - stop) Status Members No Information
== END 2024-07-31 10:08 | disposition home or self-care (01) ==
PROVIDERS: Visit Provider Ophthalmology
PROC: (CPT 66985; principal; 2024-07-31 09:30)
DX: H25.12 Age-related nuclear cataract, left eye (principal); H52.4 Presbyopia; H40.013 Open angle with borderline findings, low risk, bilateral; H18.413 Arcus senilis, bilateral; H11.153 Pinguecula, bilateral; I10 Essential (primary) hypertension; E11.9 Type 2 diabetes mellitus without complications; E78.00 Pure hypercholesterolemia, unspecified; G30.9 Alzheimer's disease, unspecified; F02.80 Dementia in other diseases classified elsewhere, unspecified severity, without behavioral disturbance, psychotic disturbance, mood disturbance, and anxiety; Z87.891 Personal history of nicotine dependence; Z79.84 Long term (current) use of oral hypoglycemic drugs; Z79.899 Other long term (current) drug therapy; Z79.82 Long term (current) use of aspirin
CPT/HCPCS: 66984; 82947; J2003; J2250; J3301; V2630